=== PATIENT | male | born 1965 | race Caucasian/White ===

== ENCOUNTER 2022-10-06 15:04 | Emergency (ER) | payer SELFPAY ==
--- NOTE | ~2022-10-06 | XR_ITS ---
EXAMINATION: XR chest 2V DATE: 10/06/2022 15:37 INDICATION: Cough TECHNIQUE: PA and lateral views of the chest are obtained. COMPARISON: None available FINDINGS: There are patchy airspace opacities of the right lung. No pleural effusion or pneumothorax. The cardiomediastinal silhouette is normal. There is mild thoracic spondylosis. IMPRESSION: 1. Patchy airspace opacities of the right lung, likely pneumonia. Reviewed, dictated and finalized at location F.
[2022-10-06 15:13] VITALS: BP 181/113; PULSE 86; RESP 14; TEMP 36.9; O2SAT 99
--- NOTE | 2022-10-06 15:30 | ED.GENADULT ---
HPI - General Adult General Chief complaint: Upper Respiratory Infection Stated complaint: Runny Nose/Cough/Chest Congestion Source: patient Mode of arrival: ambulatory Limitations: no limitations History of Present Illness HPI narrative: PATIENT PRESENTS FOR EVALUATION OF COUGH FOR THE LAST WEEK. COUGH HAS BEEN PRODUCTIVE OF BROWN AND CLEAR SPUTUM. HE HAS ASSOCIATED SHORTNESS OF BREATH. HE DENIES ANY FEVER, CHILLS, VOMITING, DIARRHEA, SORE THROAT. HE HAS EXPERIENCED SOME NAUSEA DURING COUGHING EPISODES. [facility] THE PAST YEAR. HE JUST RETURNED HOME THE DAY OF SYMPTOM ONSET AND RETURNS BACK THERE IN TWO WEEKS. NO RECENT SICK CONTACTS TO HIS KNOWLEDGE. HE DOES NOT SMOKE AND DENIES SECOND HAND SMOKE EXPOSURE. HE HAS BEEN TAKING SOME OTC COLD MEDICATION BUT IS NOT SURE IT HAS MADE A CONSIDERABLE DIFFERENCE IN HIS SYMPTOMS. Related Data Home Medications Medication Instructions Recorded Confirmed lisinopril 10/06/22 metformin 10/06/22 Allergies Allergy/AdvReac Type Severity Reaction Status Date / Time No Known Allergies Allergy Verified 10/06/22 15:14 Review of Systems Review of Systems: CONSTITUTIONAL: Denies fever, chills, or sweats. EYES: Denies visual changes, redness, or discharge. ENT: Denies rhinorrhea, congestion, sore throat, or otalgia. CARDIOVASCULAR: Denies chest pain, palpitations, or edema. RESPIRATORY: Reports cough and SOB GASTROINTESTINAL: Reports nausea. Denies abdominal pain, vomiting, or diarrhea. GENITOURINARY: Denies dysuria or hematuria. SKIN: Denies rash or itching. MUSCULOSKELETAL: Denies back pain, joint pain, or myalgia. NEUROLOGIC: Denies headache, numbness, dizziness, or weakness. PSYCHIATRIC: Denies anxiety or depression. [facility] Past Medical History Medical History (Updated 10/06/22 @ 16:17 by VINCENT Argueta, GISELLE) No pertinent past medical history Surgical History Surgical History No pertinent past surgical history Family History Family History Mother Family history non-contributory Social History Social History Smoking status: Never smoker Substance use: never Gender identity (if verbalized by the patient): Male Spiritual care concerns: No Exam Narrative: GENERAL: Well-appearing, well-nourished, and in no acute distress. HEAD: Normocephalic, atraumatic. EYES: PERRLA and EOMI. ENT: Nares clear, no rhinorrhea or epistaxis. Mucous membranes moist. Oropharynx without tonsillar hypertrophy exudate or other lesions. Bilateral TMs pearly chacko nonbulging NECK: Supple. No adenopathy or masses. No carotid bruits or JVD CHEST: Frequent cough present on exam. Clear to auscultation. No respiratory distress. No wheezes rales or rhonchi HEART: Regular rate and rhythm. No murmur heard. Normal peripheral pulses. ABDOMEN: Soft, nontender, nondistended, normal active bowel sounds. EXTREMITIES: Normal range of motion. No edema. SKIN: Warm, dry, no rash. NEURO: No focal deficits. Alert and oriented x3. PSYCH: Normal mood and affect. Course Course Emergency Course: This is a 57-year-old male who presented for evaluation of respiratory symptoms. COVID and influenza were negative. Chest x-ray consistent with pneumonia. Will treat with Augmentin and azithromycin. Increase hydration. [id number] agents for symptom management. Blood pressure likely elevated due to recurrent cough while here. He is asymptomatic in that regard. Follow-up with primary provider this week. Go to the ER for difficulty breathing or worsening symptoms. Patient in agreement with plan of care Level of Care: Express Care Visit Vital Signs Vital signs: Vital Signs Temperature 36.9 C 10/06/22 15:13 Pulse Rate 86 10/06/22 15:13 Respiratory
--- NOTE | 2022-10-06 16:13 | PC.NURSE ---
Due to questions asked by registration regarding recent travel; and history of cough, nausea and vomiting, forest fire specialist supervisor (Lidia) notified of patients diagnosis and presence in express care. Notified at [phone] and she will contact infection control.
== END 2022-10-06 16:27 | disposition home or self-care (01) ==
PROVIDERS: Emergency Provider Nurse Practitioner
DX: J18.9 Pneumonia, unspecified organism (principal); Z20.822 Contact with and (suspected) exposure to COVID-19
CPT/HCPCS: 71046; 87426; 87804; 99213; C9803; G0463

== ENCOUNTER 2023-03-13 11:25 | Emergency (ER) | payer SELFPAY ==
--- NOTE | 2023-03-13 11:30 | ED.GENADULT ---
HPI - General Adult General Chief complaint: Unspecified Stated complaint: Medication Refill Time Seen by Provider: 03/13/23 11:31 Source: patient Mode of arrival: ambulatory Limitations: no limitations History of Present Illness HPI narrative: Glynn is a 58-year-old male patient presenting to the clinic today for medication refill. He does not currently have a primary care provider and he is from [facility]. He reports he is taking lisinopril and metformin. Related Data Home Medications Medication Instructions Recorded Confirmed lisinopril 40 mg tablet 40 mg PO DAILY 03/13/23 03/13/23 metformin 500 mg tablet 500 mg PO BID 03/13/23 03/13/23 Allergies Allergy/AdvReac Type Severity Reaction Status Date / Time No Known Allergies Allergy Verified 03/13/23 11:57 Review of Systems Review of Systems: Pertinent positives per HPI. Patient denies any fever, chills, rash, headache, visual changes, dizziness, cough, runny nose, sore throat, shortness of breath, chest pain, palpitations, nausea, vomiting, diarrhea, constipation, abdominal pain, or any urinary issues. PMFSH Past Medical History Medical History No pertinent past medical history Surgical History Surgical History No pertinent past surgical history Family History Family History Mother Family history non-contributory Social History Social History Smoking status: Never smoker Substance use: never Gender identity (if verbalized by the patient): Male Spiritual care concerns: No Comments At the time of my signature, I reviewed and agree with the nursing past medical, surgical, social, and family history. There is no relevant family history pertinent to the patient complaint. Exam Narrative: General: Well-developed, well nourished, in no apparent distress Head: Normocephalic, atraumatic. Cardio: Regular rate and rhythm, s1 and s2 normal, no murmur appreciated. Resp: Clear to auscultation bilaterally, no rhonchi, rales, wheezing or rubs. Extremities: No deformity, no edema, no cyanosis, capillary refill less than 2 seconds, peripheral pulses palpable and strong. Integumentary: [place], warm, and dry, intact without lesion, no rashes. Course Course Emergency Course: Portions of this record may have been created with voice recognition software. Level of Care: Express Care Visit Vital Signs Vital signs: Vital signs reviewed Medical Decision Making MDM Narrative Medical decision making narrative: At the time of visit patient is resting on the exam table. Blood sugar was 158 the clinic today. Manual blood pressure came down to 160/100. Patient denies any headache, dizziness, visual changes, shortness breath, or any chest pain currently. Will send in prescription for lisinopril 40 mg daily and metformin 500 mg twice a day-will give a 2 month supply as the patient is heading back to [facility]. Recommend follow-up with his doctor as soon as possible. Supportive measures were discussed with the patient he voiced understanding discharge instructions and agrees to treatment plan. 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
[2023-03-13 11:31] VITALS: BP 184/101; PULSE 62; RESP 18; TEMP 36.7; O2SAT 99
[2023-03-13 11:44] VITALS: BP 184/101; PULSE 62; RESP 18; TEMP 36.7; O2SAT 99
[2023-03-13 11:57] LABS: Glucose Point of Care 158 mg/dl (65-105)
== END 2023-03-13 12:10 | disposition home or self-care (01) ==
PROVIDERS: Emergency Provider Nurse Practitioner Family
DX: I10 Essential (primary) hypertension (principal); E11.9 Type 2 diabetes mellitus without complications
CPT/HCPCS: 82948; 99213; G0463